=== PATIENT | male | born 1945 | race African-American/Black ===

== ENCOUNTER 2019-12-03 18:39 | Emergency (ER) | payer MEDICARE, MEDICAID ==
[~2019-12-03] VITALS: Ht 167.6 cm; Wt 68.0 kg
[~2019-12-03 18:39] MED LIST: BUPROPION HCL100 MG PO; CARAFATE1 G1 ORAL; CIALIS5 MG PO; COZAAR25 MG ORAL; CRESTOR10 M1 PO; DICLOFENAC SODI25 MG ORAL; ISENTRESS400 MG PO; PRAVACHOL20 MG PO; REYATAZ200 MG PO; SELZENTRY150 MG PO; VIRAMUNE XR400 MG PO
--- NOTE | 2019-12-03 19:15 | NUR ---
ED Nurse Note: pt presents to ED from home c/o chest pressure and difficulty breathing x 3 days. pt reports R sided non-radiating pressure that came on suddenly, he denies N/V at this time. 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 pt also reports increased mucus that is causing him to have difficulty breathing, denies cough at this time
--- NOTE | 2019-12-03 19:20 | NUR ---
ED Nurse Note: blood work collected and sent to lab. 20g IV line established in L AC, asymptomatic, patent and intact. 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 will continue to monitor pt and prepare for admission
[2019-12-03 19:34] VITALS: BP 130/85
[2019-12-03 19:39] LABS: BASOPHILS % (AUTO) 1.7 % (0.0-2.0); EOSINOPHILS % (AUTO) 1.2 % (0.0-3.0); HEMATOCRIT 44.1 % (42.0-52.0); LYMPHOCYTES % (AUTO) 23.4 % (20.0-45.0); MEAN CORPUSCULAR VOLUME 102 FL (80-99); MONOCYTES % (AUTO) 12.2 % (1.0-10.0); NEUTROPHILS % (AUTO) 61.5 % (45.0-75.0); PLATELET COUNT 223 K/UL (150-450); RED BLOOD COUNT 4.33 M/UL (4.70-6.10); RED CELL DISTRIBUTION WIDTH 13.3 % (11.6-14.8); WHITE BLOOD COUNT 5.6 K/UL (4.8-10.8)
--- NOTE | 2019-12-03 19:41 | Diagnostic Imaging Report ---
EXAM: XR Chest, 1 View CLINICAL HISTORY: CP TECHNIQUE: Frontal view of the chest. COMPARISON: None FINDINGS: Lungs: Mildly prominent course interstitial lung markings, likely represent underlying interstitial lung disease. No focal airspace disease. Pleural space: Unremarkable. No pneumothorax. Heart: Unremarkable. No cardiomegaly. Mediastinum: Unremarkable. Bones/joints: Unremarkable. Vasculature: The aorta is mildly tortuous. IMPRESSION: No acute cardiopulmonary disease.
[2019-12-03 19:42] LABS: ANION GAP 10 mmol/L (5-15); BLOOD UREA NITROGEN 20 mg/dL (7-18); CALCIUM 9.2 MG/DL (8.5-10.1); CARBON DIOXIDE 25 MMOL/L (21-32); CHLORIDE 99 MMOL/L (98-107); CREATININE 1.4 MG/DL (0.55-1.30); POTASSIUM 4.6 MMOL/L (3.5-5.1); SODIUM 134 MMOL/L (136-145)
[2019-12-03 19:49] LABS: INR 0.9 (0.9-1.1)
[2019-12-03 19:53] LABS: ALANINE AMINOTRANSFERASE 42 U/L (12-78); ALBUMIN 3.8 G/DL (3.4-5.0); ALBUMIN/GLOBULIN RATIO 0.8 (1.0-2.7); ALKALINE PHOSPHATASE 45 U/L (46-116); ASPARTATE AMINO TRANSFERASE 57 U/L (15-37); BILIRUBIN,TOTAL 0.4 MG/DL (0.2-1.0); CREATINE KINASE 768 U/L (26-308)
--- NOTE | 2019-12-03 20:17 | Emergency Room Report ---
History of Present Illness General Chief Complaint: Chest Pain Source: Patient Present Illness HPI Patient presents with complaints of left upper chest pain Ongoing for the past 3 days denies any change with exertion or position Patient reports that he had a cough and some shortness of breath several days ago denies any pleurisy at this time denies any vomiting or diarrhea He also feels generally weak Denies any other focal weakness however denies any neck pain denies any photophobia Denies any fevers Pain is sharp and heavy at times 3 out of 10 midsternal left upper chest Allergies: Coded Allergies: ATORVASTATIN CALCIUM (Verified Allergy, Intermediate, Anaphylaxis, 03/15/12 ) COVID-19 Screening Contact w/high risk pt: No Recent Travel to affected area: No Experienced COVID-19 symptoms?: Yes COVID-19 symptoms experienced: Shortness of Breath COVID-19 Testing performed SOURCE INSPECTOR: No Patient History Past Medical History: see triage record Reviewed Nursing Documentation: PMH: Agreed; PSxH: Agreed Nursing Documentation-PMH Past Medical History: No History, Except For Hx Cardiac Problems: No - HIV + Hx Hypertension: Yes Hx Diabetes: Yes Hx Cancer: No Hx Gastrointestinal Problems: Yes - ulcers Hx Neurological Problems: No Review of Systems All Other Systems: negative except mentioned in HPI Physical Exam Vital Signs Date Time Temp Pulse Resp B/P (MAP) Pulse Ox O2 Delivery O2 Flow Rate FiO2 12/03/19 18:49 98.6 105 20 130/85 (100) 95 Room Air Sp02 EP Interpretation: reviewed, normal General Appearance: well appearing, no apparent distress Head: normocephalic, atraumatic Eyes: bilateral eye PERRL, bilateral eye EOMI ENT: hearing grossly normal, normal pharynx, TMs + canals normal, uvula midline Neck: full range of motion, supple, no meningismus, no bony tend Respiratory: lungs clear, normal breath sounds, no rhonchi, no respiratory distress, no retraction, no accessory muscle use Cardiovascular #1: normal peripheral pulses, regular rate, rhythm, no edema, no gallop, no JVD, no murmur Gastrointestinal: normal bowel sounds, non tender, soft, no mass, no organomegaly, non-distended, no guarding, no hernia, no pulsatile mass, no rebound Genitourinary: no CVA tenderness Musculoskeletal: normal inspection Neurologic: motor strength/tone normal, 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, oriented x3 , sensory intact, responsive Psychiatric: mood/affect normal Skin: no rash Lymphatic: normal inspection, no adenopathy Medical Decision Making Diagnostic Impression: Primary Impression: ACS (acute coronary syndrome) ER Course Patient is a fairly complex patient with multiple differential to consideration including but not limited to cardiac cardiopulmonary and vascular emergencies Given patient's age and comorbidities given some of the shortness of breath complain covid-19 also entertained My suspicion for pulmonary embolism is low Patient's EKG shows nonspecific findings x-ray was normal Troponin is negative at this time and patient admitted for further care Labs Test 12/03/19 19:15 White Blood Count 5.6 K/UL (4.8-10.8) Red Blood Count 4.33 M/UL (4.70-6.10) Hemoglobin 14.0 G/DL (14.2-18.0) Hematocrit 44.1 % (42.0-52.0) Mean Corpuscular Volume 102 FL (80-99) Mean Corpuscular Hemoglobin 32.4 PG (27.0-31.0) Mean Corpuscular Hemoglobin Concent 31.8 G/DL (32.0-36.0) Red Cell Distribution Width 13.3 % (11.6-14.8) Platelet Count 223 K/UL (150-450) Mean Platelet Volume 6.5 FL (6.5-10.1) Neutrophils (%) (Auto) 61.5 % (45.0-75.0) Lymphocytes (%) (Auto) 23.4 % (20.0-45.0) Monocytes (%) (Auto) 12.2 % (1.0-10.0) Eosinophils (%) (Auto) 1.2 % (0.0-3.0) Basophils (%) (Auto) 1.7 % (0.0-2.0) Prothrombin Time 10.5 SEC (9.30-11.50) Prothromb Time International Ratio 0.9 (0.9-1.1) Activated Partial Thromboplast Time 26 SEC (23-33) Sodium Level 134 MMOL/L (136-145) Potassium Level 4.6 MMOL/L (3.5-5.1) Chloride Level 99 MMOL/L (98-107) Carbon Dioxide Level 25 MMOL/L (21-32) Anion Gap 10 mmol/L (5-15) Blood Urea Nitrogen 20 mg/dL (7-18) Creatinine 1.4 MG/DL (0.55-1.30) Estimat Glomerular Filtration Rate 59.8 mL/min (>60) Glucose Level 114 MG/DL (74-106) Calcium Level 9.2 MG/DL (8.5-10.1) Total Bilirubin 0.4 MG/DL (0.2-1.0) Aspartate Amino Transf (AST/SGOT) 57 U/L (15-37) Alanine Aminotransferase (ALT/SGPT) 42 U/L (12-78) Alkaline Phosphatase 45 U/L (46-116) Total Creatine Kinase 768 U/L (26-308) Troponin I 0.000 ng/mL (0.000-0.056) Pro-B-Type Natriuretic Peptide 23 pg/mL (0-125) Total Protein 8.8 G/DL (6.4-8.2) Albumin 3.8 G/DL (3.4-5.0) Globulin 5.0 g/dL Albumin/Globulin Ratio 0.8 (1.0-2.7) Lipase 64 U/L (73-393) EKG Diagnostic Results Rate: normal Rhythm: NSR ST Segments: other - Specific ST changes Rhythm Strip Diag. Results EP Interpretation: yes Rate: 77 Rhythm: NSR, no PVC's Chest X-Ray Diagnostic Results Chest X-Ray Diagnostic Results : Chest X-Ray Ordered: Yes # of Views/Limited/Complete: 1 View Indication: Chest Pain EP Interpretation: Yes Interpretation: no consolidation, no effusion, no pneumothorax Impression: No acute disease Electronically Signed by: Mariangel López DO Last Vital Signs Date Time Temp Pulse Resp B/P (MAP) Pulse Ox O2 Delivery O2 Flow Rate FiO2 12/03/19 19:34 105 20 Room Air 12/03/19 19:34 98.6 130/85 95 Status: improved Disposition: ADMITTED INPATIENT Condition: Serious Referrals: NOT CHOSEN IPA/,REFERRING (PCP) Mariangel López DO Dec 03, 2019 20:17
--- NOTE | 2019-12-03 20:42 | NUR ---
ED Nurse Note: Dr. López at pt bedside
[2019-12-03] MEDS ORDERED: Solu-MEDROL 125mg Inj IVP ONE (21:00)
[2019-12-03] MEDS: DiphenhydrAMINE 50mg/ml Inj IVP ONE ×2 (21:00→21:01)
--- NOTE | 2019-12-03 21:09 | NUR ---
ED Nurse Note: pt refusing benadryl at this time
[2019-12-03 21:20] VITALS: BP 130/85
--- NOTE | 2019-12-03 21:20 | NUR ---
ED Nurse Note: pt continues to ask about a blood test that he had done at [facility] in th past that found a "poison in his blood" that was making him feel the way that he is feeling now. pt states that he wants this test done on him but does now know what the test is. pt insists that the laboratory will know what he needs. GEORGIE and RN spoke with pt many times about why he needs to stay in the hospital and what risks are of leaving. pt is refusing to stay, does not want to be treated. risks and benefits explained to pt. he verbally understood the risks, refusing to sign AMA form. pt left with all belongings
[2019-12-03] MEDS ORDERED: Isentress 400mg tab ORAL SCH (21:45)
[2019-12-03] MEDS ORDERED: Albuterol 90mcg Inhaler 8gm INH PRN (21:45)
[2019-12-03] MEDS ORDERED: HYDROcodone/Acetamin 10/325 tab ORAL PRN (21:45)
[2019-12-04] MEDS ORDERED: Enoxaparin 80mg Inj SUBQ SCH (03:00)
[2019-12-04] MEDS ORDERED: Solu-MEDROL 40mg Inj IVP SCH (06:00)
[2019-12-04] MEDS ORDERED: Sucralfate 1gm tab ORAL SCH (06:30)
[2019-12-04] MEDS ORDERED: Losartan 25mg tab ORAL SCH (09:00)
== END 2019-12-03 21:20 | disposition left against medical advice (07) ==
LOC: EMR 19:03
DX: I24.9 Acute ischemic heart disease, unspecified (principal); I10 Essential (primary) hypertension; B20 Human immunodeficiency virus [HIV] disease; E11.9 Type 2 diabetes mellitus without complications
CPT/HCPCS: 36415; 71045; 80053; 82550; 83690; 83880; 84484; 85025; 85610; 85730; 93005; 96374; 99284; J2930; J7040

== ENCOUNTER 2020-06-12 19:21 | Inpatient (IN) | payer MEDICARE, MEDICAID ==
[~2020-06-12] VITALS: Ht 167.6 cm; Wt 71.7 kg
[2020-06-12] MEDS ORDERED: Aspirin Baby 81mg ORAL ONE (19:45)
[2020-06-12 19:51] VITALS: BP 138/88
[2020-06-12 20:08] LABS: EOSINOPHILS % (AUTO) 1.3 % (0.0-3.0); HEMATOCRIT 44.7 % (42.0-52.0); HEMOGLOBIN 15.6 G/DL (14.2-18.0); LYMPHOCYTES % (AUTO) 13.1 % (20.0-45.0); MEAN CORPUSCULAR VOLUME 92 FL (80-99); MONOCYTES % (AUTO) 11.4 % (1.0-10.0); NEUTROPHILS % (AUTO) 72.2 % (45.0-75.0); PLATELET COUNT 211 K/UL (150-450); RED BLOOD COUNT 4.88 M/UL (4.70-6.10); RED CELL DISTRIBUTION WIDTH 17.2 % (11.6-14.8); WHITE BLOOD COUNT 6.1 K/UL (4.8-10.8)
[2020-06-12 20:17] LABS: CALCIUM 8.6 MG/DL (8.5-10.1); CREATININE 1.5 MG/DL (0.55-1.30); POTASSIUM 3.7 MMOL/L (3.5-5.1)
[2020-06-12 20:22] LABS: ALBUMIN 3.7 G/DL (3.4-5.0); ALBUMIN/GLOBULIN RATIO 0.9 (1.0-2.7); BILIRUBIN,TOTAL 0.3 MG/DL (0.2-1.0)
--- NOTE | 2020-06-12 21:27 | Emergency Room Report ---
History of Present Illness General Chief Complaint: Chest Pain Source: Patient, Medical Record Present Illness HPI This patient states that for the past month he has had intermittent chest pain. He describes it as a squeezing sensation. He states at times it will radiate to his left shoulder. He states he presents today because he has had also some shortness of breath associated with that. He states his symptoms seem to be getting worse. He denies recent illness. Denies cough or congestion. Denies fever or chills. He denies nausea or vomiting. He is HIV positive but states that he is on his HIV medications as prescribed. He denies cough or congestion. He does not smoke or use drugs. He has no other complaints. 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 COVID-19 Screening: Negative COVID-19 COVID-19 Testing Source: 1 month ago Patient History Past Medical History: see triage record, HTN, ulcer, GERD, HIV Social History: Denies: smoking, alcohol use, drug use Reviewed Nursing Documentation: PMH: Agreed; PSxH: Agreed Nursing Documentation-PMH Past Medical History: No History, Except For Hx Cardiac Problems: No - HIV + Hx Hypertension: Yes Hx Diabetes: Yes Hx Cancer: No Hx Gastrointestinal Problems: Yes - ulcers Hx Neurological Problems: No Review of Systems All Other Systems: negative except mentioned in HPI Physical Exam Vital Signs Date Time Temp Pulse Resp B/P (MAP) Pulse Ox O2 Delivery O2 Flow Rate FiO2 06/12/20 19:30 97.7 105 20 138/88 (105) 96 Room Air Sp02 EP Interpretation: reviewed, normal General Appearance: no apparent distress, alert, GCS 15, non-toxic Head: normocephalic, atraumatic Eyes: bilateral eye normal inspection, bilateral eye PERRL ENT: hearing grossly normal, normal pharynx, no angioedema, normal voice Neck: full range of motion, supple/symm/no masses Respiratory: chest non-tender, lungs clear, normal breath sounds, no respiratory distress, no retraction, no accessory muscle use, speaking full sentences Cardiovascular #1: regular rate, rhythm, no edema Gastrointestinal: normal bowel sounds, non tender, soft, non-distended, no guarding, no rebound Rectal: deferred Musculoskeletal: back normal, normal range of motion, gait/station normal, non- tender Neurologic: alert, motor strength/tone normal, oriented x3, sensory intact, responsive, speech normal Psychiatric: judgement/insight normal, memory normal, mood/affect normal, no suicidal/homicidal ideation Skin: no rash, normal color Medical Decision Making Diagnostic Impression: Primary Impression: Chest pain ER Course This patient has been having escalating chest pain. He also has some nonspecific EKG findings that would make me concerned for a previous infarct. Initial evaluation to include troponin was negative. The patient was given aspirin in the emergency department and admitted for concern of escalating angina. He is admitted for further evaluation by cardiology. Another consideration could be a gastritis/esophagitis given his history of peptic ulcer disease. This patient was evaluated in the context of the global COVID-19 pandemic, which necessitated consideration that the patient might be at risk for infection with the [id number] virus that causes COVID-19. Institutional protocols and algorithms that pertain to the evaluation of patients at risk for COVID-19 and the state of rapid change based on information released by multiple regulatory bodies including the CDC and federal and state organizations. These policies and algorithms were followed during the patient's care in the ED. Laboratory Tests Test 06/12/20 19:45 White Blood Count 6.1 K/UL (4.8-10.8) Red Blood Count 4.88 M/UL (4.70-6.10) Hemoglobin 15.6 G/DL (14.2-18.0) Hematocrit 44.7 % (42.0-52.0) Mean Corpuscular Volume 92 FL (80-99) Mean Corpuscular Hemoglobin 32.0 PG (27.0-31.0) H Mean Corpuscular Hemoglobin Concent 34.9 G/DL (32.0-36.0) Red Cell Distribution Width 17.2 % (11.6-14.8) H Platelet Count 211 K/UL (150-450) Mean Platelet Volume 6.6 FL (6.5-10.1) Neutrophils (%) (Auto) 72.2 % (45.0-75.0) Lymphocytes (%) (Auto) 13.1 % (20.0-45.0) L Monocytes (%) (Auto) 11.4 % (1.0-10.0) H Eosinophils (%) (Auto) 1.3 % (0.0-3.0) Basophils (%) (Auto) 2.0 % (0.0-2.0) Prothrombin Time 11.0 SEC (9.30-11.50) Prothrombin Time INR 1.0 (0.9-1.1) Activated Partial Thromboplast Time 27 SEC (23-33) Sodium Level 134 MMOL/L (136-145) L Potassium Level 3.7 MMOL/L (3.5-5.1) Chloride Level 99 MMOL/L (98-107) Carbon Dioxide Level 26 MMOL/L (21-32) Anion Gap 9 mmol/L (5-15) Blood Urea Nitrogen 16 mg/dL (7-18) Creatinine 1.5 MG/DL (0.55-1.30) H Estimated Glomerular Filtration Rate 55.0 mL/min (>60) Glucose Level 117 MG/DL (74-106) H Calcium Level 8.6 MG/DL (8.5-10.1) Total Bilirubin 0.3 MG/DL (0.2-1.0) Aspartate Amino Transferase (AST) 40 U/L (15-37) H Alanine Aminotransferase (ALT) 34 U/L (12-78) Alkaline Phosphatase 42 U/L (46-116) L Troponin I 0.003 ng/mL (0.000-0.056) Total Protein 7.8 G/DL (6.4-8.2) Albumin 3.7 G/DL (3.4-5.0) Globulin 4.1 g/dL Albumin/Globulin Ratio 0.9 (1.0-2.7) L EKG Diagnostic Results Rate: tachycardiac - S.tachycardia, NSST findings on EKG Rhythm: other - S.tachycardia ST Segments: other - NSST findings Rhythm Strip Diag. Results EP Interpretation: yes Rate: 100's Rhythm: NSR, other - intially S.tachycardia, then NSR Chest X-Ray Diagnostic Results Chest X-Ray Diagnostic Results : Chest X-Ray Ordered: Yes # of Views/Limited/Complete: 1 View Indication: Chest Pain EP Interpretation: Yes Interpretation: no consolidation, no effusion, no pneumothorax, no acute cardiopulmonary disease Impression: No acute disease Electronically Signed by: Montserrat Zaman DO Last Vital Signs Date Time Temp Pulse Resp B/P (MAP) Pulse Ox O2 Delivery O2 Flow Rate FiO2 06/12/20 19:51 97.7 105 20 138/88 96 Room Air Disposition: ADMITTED INPATIENT Condition: Stable Referrals: NOT CHOSEN IPA/,REFERRING (PCP) Montserrat Zaman DO Jun 12, 2020 21:27
[2020-06-12 21:30] LABS: APPEARANCE,URINE CLEAR; BILIRUBIN, URINE NEGATIVE (NEGATIVE); COLOR,URINE PALE YELLOW; GLUCOSE, URINE (UA) 4+ (NEGATIVE); KETONES,URINE NEGATIVE (NEGATIVE); LEUKOCYTE ESTERASE ,URINE NEGATIVE (NEGATIVE); NITRITE,URINE NEGATIVE (NEGATIVE); PH,URINE 5 (4.5-8.0); PROTEIN,URINE 1+ (NEGATIVE); UROBILINOGEN,URINE NORMAL MG/DL (0.0-1.0)
[2020-06-12 22:00] VITALS: BP 129/85
[2020-06-13 00:35] VITALS: BP 128/88
[2020-06-13] MEDS ORDERED: Acetaminophen 500mg (ES) tab ORAL PRN (01:00)
[2020-06-13 04:00] VITALS: BP 127/75
--- NOTE | 2020-06-13 09:51 | General Progress Note ---
Subjective Allergies: Coded Allergies: ATORVASTATIN CALCIUM (Verified Allergy, Intermediate, Anaphylaxis, 03/15/12) Objective Last 24 Hour Vital Signs Date Time Temp Pulse Resp B/P (MAP) Pulse Ox O2 Delivery O2 Flow Rate FiO2 06/13/20 04:00 97.2 87 20 127/75 (92) 100 06/13/20 04:00 96 06/13/20 00:49 Room Air 06/13/20 00:39 98 06/13/20 00:35 97.2 91 17 128/88 (101) 98 06/13/20 00:30 98.0 98 22 134/80 98 Room Air 06/12/20 22:00 98.0 103 22 129/85 98 Room Air 06/12/20 19:51 97.7 105 20 138/88 96 Room Air 06/12/20 19:51 105 20 Room Air 06/12/20 19:30 97.7 105 20 138/88 (105) 96 Room Air Intake and Output 06/12/20 06/13/20 19:00 07:00 Intake Total 120 ml Balance 120 ml Intake Oral 120 ml # Voids 2 Laboratory Tests 06/12/20 19:45: White Blood Count 6.1, Red Blood Count 4.88, Hemoglobin 15.6, Hematocrit 44.7, Mean Corpuscular Volume 92, Mean Corpuscular Hemoglobin 32.0H, Mean Corpuscular Hemoglobin Concent 34.9, Red Cell Distribution Width 17.2H, Platelet Count 211, Mean Platelet Volume 6.6, Neutrophils (%) (Auto) 72.2, Lymphocytes (%) (Auto) 13.1L, Monocytes (%) (Auto) 11.4H, Eosinophils (%) (Auto) 1.3, Basophils (%) (Auto) 2.0, Prothrombin Time 11.0, Prothromb Time International Ratio 1.0, Activated Partial Thromboplast Time 27, Sodium Level 134L, Potassium Level 3.7, Chloride Level 99, Carbon Dioxide Level 26, Anion Gap 9, Blood Urea Nitrogen 16, Creatinine 1.5H, Estimat Glomerular Filtration Rate 55.0, Glucose Level 117H, Calcium Level 8.6, Total Bilirubin 0.3, Aspartate Amino Transf (AST/SGOT) 40H, Alanine Aminotransferase (ALT/SGPT) 34, Alkaline Phosphatase 42L, Troponin I 0.003, Total Protein 7.8, Albumin 3.7, Globulin 4.1, Albumin/Globulin Ratio 0.9L 06/12/20 20:55: Urine Color Pale yellow, Urine Appearance Clear, Urine pH 5, Urine Specific [place] 1.010, Urine Protein 1+H, Urine Glucose (UA) 4+H, Urine Ketones Negative, Urine Blood 4+H, Urine Nitrite Negative, Urine Bilirubin Negative, Urine Urobilinogen Normal, Urine Leukocyte Esterase Negative, Urine RBC 15-20H, Urine WBC 0-2, Urine Squamous Epithelial Cells Occasional, Urine Bacteria Few 06/13/20 06:15: Troponin I 0.015 Height (Feet): 5 Height (Inches): 6.00 Weight (Pounds): 158 Assessment/Plan Assessment/Plan: GI Consult Assessment - atypical CP - h/o PUD - years ago - recent dark stools, negative ER evaluation at [facility] - mild azotemia - mild transaminitis Recommendations - check OB - check hepatitis serologies - check abd U/S - PPI Thank you MD Sherita Enriquez Payman MD Jun 13, 2020 09:50
--- NOTE | 2020-06-13 10:00 | Consultation ---
DATE OF CONSULTATION: 06/13/2020 NOTE: INCOMPLETE DICTATION INFECTIOUS DISEASES CONSULTATION CONSULTING PHYSICIAN: Aguilar Armendariz MD. PRIMARY ATTENDING PHYSICIAN: Mariangel uHber MD. REASON FOR CONSULT: HIV. HISTORY OF PRESENT ILLNESS: This is a 75-year-old male, admitted yesterday complaining of chest pain. The patient had chest pain for one month, mostly is stabbing. At times, it radiates to left shoulder. However, had slight shortness of breath yesterday and chest pain was more constant yesterday. PAST MEDICAL HISTORY: He has HIV for 30 years, getting Biktarvy, has diabetes mellitus type 2, getting oral hypoglycemic agent, has hypertension, has chronic kidney disease. ALLERGIES: Allergic to Lipitor. MEDICATIONS: Getting Tylenol. Got a dose of aspirin. SOCIAL HISTORY: Single. Denies alcohol, drug abuse or smoking. REVIEW OF SYSTEMS: No fever. No chills. Today, does not have any shortness of breath and no significant pain. No nausea. No vomiting. PHYSICAL EXAMINATION: VITAL SIGNS: Temperature 97.2, pulse 96, blood pressure 127/75. GENERAL APPEARANCE: Well developed, no acute distress. HEAD AND NECK: Has slightly dry mouth. HEART: Normal rate. LUNGS: Clear. ABDOMEN: Soft, nontender. EXTREMITIES: He has no edema. LABORATORY AND DIAGNOSTIC DATA: WBC 6.1, hemoglobin 15.6, hematocrit 44.7, and platelets is 211. Sodium 134, potassium 3.9, chloride 99, bicarb 26, BUN 16. Will be dictated again Aguilar Armendariz M.D. DR: MEGAN JOB#: [id number] CC: ANUM
--- NOTE | 2020-06-13 15:15 | History and Physical Report ---
DATE OF ADMISSION: 06/12/2020 HISTORY OF PRESENT ILLNESS: The patient came in because of chest pain. Negative troponin, rule out acute coronary syndrome. The patient also has history of peptic ulcer disease. The patient also has HIV. The patient is having chest pain for about a day. No associated symptoms. No nausea, vomiting, or diarrhea. No cough. No headaches. PAST MEDICAL HISTORY: HIV, peptic ulcer disease. PAST SURGICAL HISTORY: None. ALLERGIES: None. MEDICATIONS: Takes PPI and HIV meds. FAMILY HISTORY: Noncontributory. REVIEW OF SYSTEMS: Only significant for chest pain. No shortness of breath. No respiratory symptoms. PHYSICAL EXAMINATION: VITAL SIGNS: Temperature 97.2, pulse 78, blood pressure 130/70. The patient was very eager to leave and did not want to await for the eyelet riveter to clear the patient. Metallurgy Laboratory Technician was consulted to clear the patient before discharge. However, he was very anxious to leave, so the nurses accepted for him to sign the AMA form Mariangel Huber M.D. DR: DWAYNE JOB#: [id number] CC:
--- NOTE | 2020-06-13 15:36 | Diagnostic Imaging Report ---
Indication: Chest pain Technique: One view of the chest Comparison: 12/03/2019 Findings: There is elevation of the left hemidiaphragm. The lungs and pleural spaces are clear. Heart size is normal Impression: No acute process
--- NOTE | 2020-06-14 09:00 | Consultation ---
DATE OF CONSULTATION: 06/13/2020 GASTROENTEROLOGY CONSULTATION CONSULTING PHYSICIAN: Marianna Magallon MD. CHIEF COMPLAINT: I was asked to see the patient for atypical chest pain and history of peptic ulcer. HISTORY OF PRESENT ILLNESS: The patient is a 75-year-old man, who comes into the hospital for about a month history of intermittent chest pain, which was squeezing in nature, left upper chest and shoulder in location. He has had some shortness of breath, but denies any nausea, vomiting, diarrhea, or constipation. About a week ago, he had some dark stools. He reports he went to [facility] emergency room, but he was subsequently discharged without any significant findings. He has history of peptic ulcer disease and he had endoscopy 01:01 about 20 years ago. PAST MEDICAL HISTORY: History of HIV positivity. FAMILY HISTORY: Noncontributory. SOCIAL HISTORY: The patient drinks occasionally, but does not smoke. MEDICATIONS: See the chart list for details. ALLERGIES: Atorvastatin. PHYSICAL EXAMINATION: GENERAL: This is a well-developed and well-nourished man, in no distress. HEENT: Normocephalic, atraumatic. NECK: Supple. CHEST: Clear to auscultation. CARDIOVASCULAR: Revealed regular rate. ABDOMEN: Soft, nontender. EXTREMITIES: No edema. LABORATORY DATA: Noted. ASSESSMENT: This patient has normal blood level and therefore a significant GI 02:21 is unlikely. However, given the recent history of dark stools, I will check stool occult blood. This is also important because he does take Voltaren 25 mg three times daily. The patient looks good. 02:38 stool occult blood should be checked. Should it be positive then a consideration will be given for endoscopy. Also, the patient has not had a repeat colonoscopy done, that might be indicated as well. For the time being his management should be conservative 02:55 cardiac evaluation should be on the way. RECOMMENDATIONS: Per above discussion and per orders written in the chart. Thank you for asking me to participate in the care of this patient. Marianna Magallon M.D. DR: ANGELICA JOB#: [id number] CC:
--- NOTE | 2020-06-17 11:30 | Discharge Summary ---
Discharge Summary Discharge Summary _ DATE OF ADMISSION: 06/12/2020 DATE OF DISCHARGE: 06/13/2020 Patient left AGAINST MEDICAL ADVICE. REASON FOR ADMISSION: 75 years old male with past medical history of hypertension, diabetes mellitus, HIV positive, history of peptic ulcer disease, reported that he had intermittent chest pain episodes for the past few months. Patient described chest pain as a squeezing sensation. At times it may radiate to the left shoulder. He presented to emergency department because he also had associated shortness of breath. Symptoms started to increase in intensity. No cough or congestion. No fever or chills. No nausea or vomiting. Patient was on HIV medication, which he was taking as prescribed. He denied using drugs or tobacco use. Rapid COVID-19 was negative. Chest x-ray revealed no acute cardiopulmonary pathology. Laboratory work-up revealed no leukocytosis,stable hemoglobin, hematocrit and platelet count. Troponin negative. EKG revealed sinus rhythm , no acute ischemic changes. BUN 16, creatinine 1.5. Glucose 117. Urinalysis revealed +1 protein , +4 glucose , no evidence of urinary tract infection. In emergency department patient received aspirin and admitted for further management. CONSULTANTS: ID specialist Dr. Aguilar Armendariz [facility]: Patient admitted to telemetry floor . Serial troponin were ordered. Cardiology evaluation was pending. ID specialist seen and evaluated patient for HIV. GI specialist seen and evaluated patient. Patient had a history of peptic ulcer disease years ago. He reported recent dark stools. ER evaluation at [facility] was negative. Patient noted to have mild transaminitis. Hepatitis serology along with abdominal ultrasound was ordered. Stool OB was ordered . Hemoglobin and hematocrit were stable. Patient started on GI prophylaxis. GI specialist recommended colonoscopy, which can be done as outpatient, given stable hemoglobin and hematocrit. Chest pain resolved. Patient decided to leave AGAINST MEDICAL ADVICE. The risks and consequences of signing AGAINST MEDICAL ADVICE were discussed with patient in detail. Patient verbalized understanding, nevertheless signed AMA form and left. FINAL DIAGNOSES: Atypical chest pain History of peptic ulcer disease HIV disease I have been assigned to dictate discharge summary for this account. I was not involved in the patient's management. Maryana Chaudhry NP Jun 17, 2020 11:30
== END 2020-06-13 10:00 | disposition left against medical advice (07) | DRG 313 ==
LOC: EMR 19:45 → 2E 21:14 → EDBEDREQ 22:04
DX: R07.89 Other chest pain (principal); Z88.8 Allergy status to other drugs, medicaments and biological substances; I10 Essential (primary) hypertension; E11.9 Type 2 diabetes mellitus without complications; Z79.84 Long term (current) use of oral hypoglycemic drugs
CPT/HCPCS: 36415; 71045; 80053; 81003; 84484; 85025; 85610; 85730; 93005; 99285; U0002